=== PATIENT | male | born 1950 | race Caucasian/White ===

== ENCOUNTER 2025-04-28 14:26 | Outpatient (CLI) | payer OTHER ==
[2025-04-28 16:27] LABS: Hematocrit 40.1 % (38.8-50.0); Hemoglobin 13.3 g/dL (13.5-17.5); Mean Corpuscular Hemoglobin 31.6 pg (27.0-33.0); Mean Corpuscular Volume 95.2 fL (81.2-95.1); Platelet Count 174 10x3/uL (150-450); Red Blood Cell (RBC) Count 4.21 10x6/uL (4.32-5.72); White Blood Cell (WBC) Count 4.87 10x3/uL (3.5-10.5)
[2025-04-28 16:57] LABS: Anion Gap 13 mmol/L (10-20); BUN (Urea Nitrogen) 14 mg/dL (8.4-25.7); Calc. Creatinine Clearance 0 mL/min (70-130); Calcium 9.8 mg/dL (7.8-10.44); Carbon Dioxide 28 mmol/L (23-31); Chloride 108 mmol/L (98-107); Glucose 104 mg/dL (83-110); Potassium 4.2 mmol/L (3.5-5.1); Sodium 145 mmol/L (136-145)
== END 2025-04-28 14:27 | disposition home or self-care (01) ==
LOC: CSHLAB 14:26
PROVIDERS: ATTEND Surgery
DX: Z01.818 Encounter for other preprocedural examination (principal); C25.0 Malignant neoplasm of head of pancreas
CPT/HCPCS: 80048; 85027; 93005; 93010

== ENCOUNTER 2025-05-02 06:05 | Day surgery (SDC) | payer OTHER ==
[2025-04-28 15:08] VITALS: BMI 20.8
[2025-05-02] MEDS ORDERED: Lidocaine 1% PF 5 ML VIAL ONE (07:27)
[2025-05-02] MEDS ORDERED: Ondansetron PF 4 MG/2 ML Vial ONE (07:27)
[2025-05-02] MEDS ORDERED: Bupivacaine HCl 0.5%/Epinephrine 1:200,000/PF 30 ml Vial ONE (07:47)
[2025-05-02] MEDS ORDERED: Etomidate 40 MG (20 mL) VIAL ONE (07:48)
[2025-05-02] MEDS ORDERED: CEFAZOLIN 2 GM VIAL ONE (07:53)
[2025-05-02] MEDS ORDERED: Bupivacaine/Epinephrine 0.25% 30 ML VIAL ONE (08:29)
== END 2025-05-02 10:10 | disposition home or self-care (01) ==
LOC: CSHSDC 06:05
PROVIDERS: ATTEND Surgery
PROC: 0JH60WZ Insertion of Totally Implantable Vascular Access Device into Chest Subcutaneous Tissue and Fascia, Open Approach (ICD-10-PCS; principal; 2025-05-02)
DX: C25.0 Malignant neoplasm of head of pancreas (principal); I25.10 Atherosclerotic heart disease of native coronary artery without angina pectoris; K21.9 Gastro-esophageal reflux disease without esophagitis; M79.7 Fibromyalgia; Z95.5 Presence of coronary angioplasty implant and graft; Z86.73 Personal history of transient ischemic attack (TIA), and cerebral infarction without residual deficits; Z90.49 Acquired absence of other specified parts of digestive tract; Z88.5 Allergy status to narcotic agent; Z88.8 Allergy status to other drugs, medicaments and biological substances; Z79.899 Other long term (current) drug therapy
CPT/HCPCS: 36561; 71045; J1100; J1642; J3010; A6258; C1788